=== PATIENT | female | born 1945 | race Two or more races ===

== ENCOUNTER 2019-12-13 09:38 | Outpatient (CLI) | payer MEDICARE, MEDICAID ==
[~2019-12-13] VITALS: Ht 128.9 cm; Wt 57.2 kg
[2019-12-13] MEDS ORDERED: FAMOTIDINE20 MG ORAL (13:03)
[2019-12-13] MEDS ORDERED: AMLODIPINE BESYL5 MG ORAL (13:03)
[2019-12-13] MEDS ORDERED: ATORVASTATIN CA20 MG ORAL (13:03)
[2019-12-13] MEDS ORDERED: DOCUSATE SODIU100 MG ORAL (13:03)
[2019-12-13] MEDS ORDERED: LOSARTAN POTASS50 MG ORAL (13:03)
[2019-12-13 13:04] VITALS: BP 157/68
--- NOTE | 2019-12-13 16:45 | Consultation ---
DATE OF CONSULTATION: 12/13/2019 CONSULTING PHYSICIAN: Scout Shah M.D. CHIEF COMPLAINT: Abdominal pain. HISTORY OF PRESENT ILLNESS: This is a very pleasant 74-year-old female with multiple medical problems including history of duodenal ulceration apparently was bleeding in the past, history of chronic constipation, who was referred to us for evaluation of abdominal pain. The abdominal pain is mostly in the right upper quadrant. The patient has prior history of cholecystectomy. She stated this pain does not wake her up at night. Denies any nausea. The pain is sometimes positional, sometimes food-related, nonspecific. No GI bleeding. Minimal weight loss, she cannot quantify. PAST MEDICAL HISTORY: 1. Hypertension. 2. Hypercholesterolemia. 3. Peptic ulcer disease, duodenal ulcer bleeding. 4. Gallstones. PAST SURGICAL HISTORY: Open cholecystectomy. MEDICATION: Please see medication reconciliation list. FAMILY HISTORY: No family history of GI malignancies. SOCIAL HISTORY: The patient denies any tobacco, alcohol, or drug abuse. ALLERGIES: No known drug allergies. REVIEW OF SYSTEMS: Positive for abdominal pain and constipation. PHYSICAL EXAMINATION: VITAL SIGNS: Temperature 98.7, blood pressure 157/68, pulse 60, respirations 20. HEENT: Normocephalic and atraumatic. Sclerae anicteric. NECK: Supple. No evidence of obvious lymphadenopathy. CARDIOVASCULAR: Regular rate and rhythm. Plus S1 and S2. LUNGS: Clear to auscultation bilaterally. ABDOMEN: Positive bowel sounds. Soft. Minimal tenderness to palpation in the epigastric area. No rebound. No guarding. No peritoneal sign. EXTREMITIES: No cyanosis. No clubbing. No edema ASSESSMENT: This is a 74-year-old female with chronic constipation, epigastric abdominal pain, history of duodenal ulceration. PLAN: We are going to start the patient on omeprazole 40 mg p.o. daily for acid reflux disease and history of duodenal ulceration. Also, we are going give the patient Linzess 145 for chronic constipation. The patient was told to come back in a month for re-evaluation for endoscopy and colonoscopy. Given COVID-19 pandemic at this time, we are going to hold off absolutely needed. Meanwhile, the patient as I mentioned to take those two medication and come back in the office in a month for followup. Scout Frankie Shah DR: CECE JOB#: [id number] CC:
== END 2019-12-13 11:38 | disposition home or self-care (01) ==
LOC: PAN 09:38
DX: R10.9 Unspecified abdominal pain (principal); R10.11 Right upper quadrant pain; R10.13 Epigastric pain; Z90.49 Acquired absence of other specified parts of digestive tract; I10 Essential (primary) hypertension; E78.00 Pure hypercholesterolemia, unspecified; Z87.11 Personal history of peptic ulcer disease; K59.09 Other constipation
CPT/HCPCS: G0463

== ENCOUNTER 2020-01-10 08:26 | Outpatient (CLI) | payer MEDICARE, MEDICAID ==
[~2020-01-10 08:26] MED LIST: AMLODIPINE BESYL5 MG ORAL; ATORVASTATIN CA20 MG ORAL; DOCUSATE SODIU100 MG ORAL; FAMOTIDINE20 MG ORAL; LOSARTAN POTASS50 MG ORAL
--- NOTE | 2020-01-10 08:45 | NUR ---
BP 164/58 HR 62, PT MENTIONED SHE DID NOT TAKE BP MEDICATION YET. INSTRUCTED PT AND HER SON SHE IS TO TAKE BP MEDICATION WHEN SHE GETS HOME. Addendum: 01/10/20 at 0904 by VIOLETA SANDOVAL Amended: Links added.
[2020-01-10 09:02] VITALS: BP 164/58
[2020-01-10] MEDS ORDERED: OMEPRAZOLE40 M1 ORAL (09:02)
[2020-01-10] MEDS ORDERED: LINZESS145 MCG PO (09:02)
--- NOTE | 2020-01-10 09:27 | General Progress Note ---
Assessment/Plan Assessment/Plan: 1. Hypertension. 2. Hypercholesterolemia. 3. Peptic ulcer disease, duodenal ulcer bleeding. 4. Gallstones. 5. GERD 6. Constipation good response to ppi and linzess plan EGD and colonoscopy on 01/24 Subjective ROS Limited/Unobtainable: No Allergies: Coded Allergies: No Known Allergies (Unverified , 12/13/19) Objective Last 24 Hour Vital Signs Date Time Temp Pulse Resp B/P (MAP) Pulse Ox O2 Delivery O2 Flow Rate FiO2 01/10/20 09:02 98.2 62 16 164/58 (93) General Appearance: alert EENT: normal ENT inspection Neck: supple Cardiovascular: normal rate Respiratory/Chest: decreased breath sounds Abdomen: normal bowel sounds, non tender, soft Extremities: non-tender Scout Shah MD January 10, 2020 09:27
== END 2020-01-10 10:26 | disposition home or self-care (01) ==
LOC: PAN 08:26
DX: K21.9 Gastro-esophageal reflux disease without esophagitis (principal); K59.00 Constipation, unspecified; I10 Essential (primary) hypertension; E78.00 Pure hypercholesterolemia, unspecified; K26.9 Duodenal ulcer, unspecified as acute or chronic, without hemorrhage or perforation; K80.80 Other cholelithiasis without obstruction
CPT/HCPCS: 99212

== ENCOUNTER 2020-02-03 08:02 | Day surgery (SDC) | payer MEDICARE, MEDICAID ==
[2020-02-03] VITALS (12 sets, daily range): BP systolic 125–192; BP diastolic 58–92
[~2020-02-03] VITALS: Ht 149.9 cm; Wt 55.8 kg
[~2020-02-03 08:02] MED LIST changes: +LINZESS145 MCG PO; +LR 1000ml 1,000 ML IVLG SCH; +OMEPRAZOLE40 M1 ORAL
--- NOTE | 2020-02-03 09:23 | Short Stay Surgery H&P ---
History of Present Illness History of Present Illness Chief Complaint see recent office note HPI Janki Martinez is a 74 year old female who was admitted on for Weight Loss, Abdominal Pain, Gerd Patient History Allergies: Coded Allergies: No Known Allergies (Unverified , 02/03/20) Medication History Scheduled Amlodipine Besylate* (Amlodipine Besylate*), 5 MG ORAL DAILY, (Reported) Atorvastatin Calcium* (Atorvastatin Calcium*), 10 MG ORAL BEDTIME, (Reported) Losartan Potassium* (Losartan Potassium*), 50 MG ORAL DAILY, (Reported) Omeprazole (Omeprazole), 40 MG ORAL DAILY, (Reported) Miscellaneous Medications Linaclotide (Linzess), 145 MCG PO, (Reported) Physical Exam Vital Signs Last Vital Signs Date Time Temp Pulse Resp B/P (MAP) Pulse Ox O2 Delivery O2 Flow Rate FiO2 02/03/20 09:00 Room Air 02/03/20 08:51 97.1 66 16 166/73 99 Plan Attestation Are the patient's medical conditions optimized for surgery? Scout Shah MD February 03, 2020 09:23
--- NOTE | 2020-02-03 09:23 | Pre-Procedure Note/Attestation ---
Pre-Procedure Note/Attestation Complete Prior to Procedure Planned Procedure: not applicable Procedure Narrative: esophagogastroduodenoscopy and colonoscopy Indications for Procedure Pre-Operative Diagnosis: GERD, WT loss Attestation I attest that I discussed the nature of the procedure; its benefits; risks and complications; and alternatives (and the risks and benefits of such alternatives ), prior to the procedure, with the patient (or the patient's legal financial foundations representative). I attest that, if there was a reasonable possibility of needing a blood transfusion, the patient (or the patient's legal financial foundations representative) was given the [facility] standardized written summary, pursuant to the Benito Jenise Blood Safety Act ([place] Health and Safety Code # 1645, as amended). I attest that I re-evaluated the patient just prior to the surgery and that there has been no change in the patient's H&P, except as documented below: Scout Shah MD February 03, 2020 09:23
[2020-02-03] MEDS ORDERED: Esmolol 100mg/10ml Inj ONE (09:30)
[2020-02-03] MEDS ORDERED: LR 1000ml ONE (09:30)
[2020-02-03] MEDS ORDERED: Lidocaine 1% MPF 10mg/ml 5ml ONE (09:30)
--- NOTE | 2020-02-03 09:56 | Anethesia Preoperative Eval ---
Anesthesia Pre-op PMH/ROS General Date of Evaluation: February 03, 2020 Time of Evaluation: 09:25 Anesthesiologist: roque ASA Score: ASA 4 Mallampati Score Class I : Soft palate, uvula, fauces, pillars visible Class II: Soft palate, uvula, fauces visible Class III: Soft palate, base of uvula visible Class IV: Only hard plate visible Mallampati Classification: Class II Surgeon: sukumar Diagnosis: weight loss, abdominal pain, gerd Surgical Procedure: egd/colonoscopy Anesthesia History: none Social History: smoking - nonsmoker Family History: no anesthesia problems Allergies: Coded Allergies: No Known Allergies (Unverified , 02/03/20) Medications: see eMAR Patient NPO?: Yes Past Medical History Cardiovascular: Reports: HTN, other - hypercholesterolemia Gastrointestinal/Genitourinary: Reports: other - gastritis, pud, gallstones, urinary incontinence Neurologic/Psychiatric: Reports: other - seizure disorder HEENT: Reports: other - tinnitus Anesthesia Pre-op Phys. Exam Physician Exam Last Vital Signs Date Time Temp Pulse Resp B/P (MAP) Pulse Ox O2 Delivery O2 Flow Rate FiO2 02/03/20 09:00 Room Air 02/03/20 08:51 97.1 66 16 166/73 99 Constitutional: NAD Neurologic: CN 2-12 intact Cardiovascular: RRR Respiratory: CTA Gastrointestinal: S/NT/ND Airway Exam Mallampati Score: Class II MO: limited Neck: flexible TMD: 2fb ROM: limited Teeth: intact Anesthesia Pre-op A/P Studies Pre-op Studies: EKG - nsr, nssttwa Risk Assessment & Plan Assessment: asa4 Plan: mac Status Change Before Surgery: No Pre-Antibiotics Drug: Ashley Wu MD February 03, 2020 09:56
--- NOTE | 2020-02-03 10:01 | Endoscopy Procedure Note ---
Endoscopy Procedure Note General Indication for Procedure: weig loss Procedures Performed: EGD, colonoscopy Operative Findings/Diagnosis: 6 polyps Specimen: yes Pt Tolerated Procedure Well: Yes Estimated Blood Loss: none Anesthesia Anesthesiologist: luis Anesthesia: MAC Inserted Devices Implant(s) used?: No Quality Quality of Bowel Preparation: Good Did scope reach the cecum?: Yes Was there any complications?: No GI Core Measures 50 yrs or older w/o bx or poly: No 10yrs. F/U recommended: Yes If not recommended, why?: Above average risk 18 years or older w/prev. colo: No Scout Shah MD February 03, 2020 10:01
--- NOTE | 2020-02-03 16:15 | Procedure Note ---
DATE OF PROCEDURE: 02/03/2020 SURGEON: Scout Shah MD. PROCEDURE: Upper endoscopy with biopsy, colonoscopy with biopsy, and snare polypectomy. ANESTHESIA: Per Dr. Kline. INSTRUMENT: Olympus adult flexible upper endoscope and colonoscope. INDICATION: Weight loss, GERD. REASON FOR PROCEDURE: The procedure, risks, benefits, and possible consequences, including hemorrhage, aspiration, perforation and infection, and alternative treatments, were explained to the patient/legal guardian by Dr. Scout Shah and the patient/legal guardian understood and accepted these risks. DESCRIPTION OF PROCEDURE: After informed consent was obtained and patient was adequately sedated, first Olympus upper endoscope was advanced from mouth into the second portion of duodenum and retroflexion was performed in the stomach. Patient had diffuse gastritis. Random biopsy from antrum was obtained to rule out H. pylori infection. At this time, the upper endoscope was retrieved. The patient was turned over for colonoscopy. First, rectal exam was performed, which was positive for internal hemorrhoids. Then the scope was advanced from rectum into the cecum documented by appendix orifice, ileocecal valve, and right upper quadrant palpation. Quality of prep was good. Patient had a total of 6 polyps, removed 2 from the ascending, 3 from transverse, and 1 from sigmoid. The largest polyp was from the transverse colon measured roughly about 1 cm, removed with hot snare polypectomy technique. Another bigger polyp was in the ascending colon, was about 7 millimeter, removed with hot snare polypectomy technique. The rest of the polyps were removed with cold biopsy forceps technique. Retroflexion in the rectum was performed showed evidence of internal hemorrhoids. SUMMARY OF FINDINGS: 1. Gastritis, status post biopsy. 2. Total of 6 polyps removed. See above for details. 3. Internal hemorrhoids. RECOMMENDATIONS: Follow up path. Given 6 polyps, we recommend repeat colonoscopy in 3 years. Scout Shah M.D. DR: SHAWN JOB#: [id number] CC:
--- NOTE | 2020-02-03 17:46 | Immediate Post-Op Evaluation ---
Immediate Post-Op Evalulation Immediate Post-Op Evalulation Procedure: egd/colonoscopy w/bx Date of Evaluation: February 03, 2020 Time of Evaluation: 10:20 IV Fluids: 450ml lr Blood Products: none Estimated Blood Loss: negligible Blood Pressure Systolic: 154 Blood Pressure Diastolic: 92 Pulse Rate: 74 Respiratory Rate: 18 O2 Sat by Pulse Oximetry: 100 Temperature (Fahrenheit): 97.7 Pain Score (1-10): 0 Nausea: No Vomiting: No Complications none Patient Status: awake, reacts, patent Hydration Status: adequate Drug: Ashley Wu MD February 03, 2020 17:46
--- NOTE | 2020-02-03 17:47 | 48 Hour Post Anesthesia Eval ---
Post Anesthesia Evaluation Procedure: egd/colonoscopy w/bx Date of Evaluation: February 03, 2020 Time of Evaluation: 10:22 Blood Pressure Systolic: 166 0: 73 Pulse Rate: 71 Respiratory Rate: 18 Temperature (Fahrenheit): 97.7 O2 Sat by Pulse Oximetry: 100 Airway: patent Nausea: No Vomiting: No Pain Intensity: 0 Hydration Status: adequate Cardiopulmonary Status: stable Mental Status/LOC: patient returned to baseline Post-Anesthesia Complications: none Follow-up care needed: N/A Ashley Amin MD February 03, 2020 17:47
== END 2020-02-03 11:50 | disposition home or self-care (01) ==
LOC: GAS 08:02
DX: K21.9 Gastro-esophageal reflux disease without esophagitis (principal); R63.4 Abnormal weight loss; K63.5 Polyp of colon; K64.8 Other hemorrhoids; K29.50 Unspecified chronic gastritis without bleeding; I10 Essential (primary) hypertension; E78.00 Pure hypercholesterolemia, unspecified; Z87.11 Personal history of peptic ulcer disease; G40.909 Epilepsy, unspecified, not intractable, without status epilepticus; Z79.899 Other long term (current) drug therapy; D12.2 Benign neoplasm of ascending colon; D12.5 Benign neoplasm of sigmoid colon; D12.3 Benign neoplasm of transverse colon
CPT/HCPCS: 43239; 45380; 45385; 93005; 94003; J0360; J2704; J7120; 94150

== ENCOUNTER 2020-03-27 09:04 | Outpatient (CLI) | payer MEDICARE, MEDICAID ==
[~2020-03-27 09:04] MED LIST changes: -LR 1000ml 1,000 ML IVLG SCH
--- NOTE | 2020-03-27 09:37 | General Progress Note ---
Assessment/Plan Assessment/Plan: SUMMARY OF FINDINGS: 1. Gastritis, status post biopsy. 2. Total of 6 polyps removed. See above for details. 3. Internal hemorrhoids. RECOMMENDATIONS: Follow up path. Given 6 polyps, we recommend repeat colonoscopy in 3 years. ppi QOD Subjective ROS Limited/Unobtainable: No Allergies: Coded Allergies: No Known Allergies (Unverified , 02/03/20) Objective General Appearance: alert EENT: normal ENT inspection Neck: supple Cardiovascular: normal rate Respiratory/Chest: decreased breath sounds Abdomen: normal bowel sounds, non tender, soft Extremities: non-tender Scout Shah MD Mar 27, 2020 09:37
[2020-03-27 14:22] VITALS: BP 154/82
== END 2020-03-27 11:04 | disposition home or self-care (01) ==
LOC: PAN 09:04
DX: K29.70 Gastritis, unspecified, without bleeding (principal); K63.5 Polyp of colon; K64.8 Other hemorrhoids